=== PATIENT | female | born 1995 | race Caucasian/White ===

== ENCOUNTER 2024-02-12 03:10 | Emergency (ER) | payer MEDICAID ==
[~2024-02-12] VITALS: Ht 167.6 cm; Wt 63.5 kg
[2024-02-12] MEDS ORDERED: HYDR-500 PO (03:39)
[2024-02-12 03:53] VITALS: BP 131/75; TEMP 98; O2SAT 98
== END 2024-02-12 03:56 | disposition home or self-care (01) ==
LOC: ER 03:17
DX: F41.9 Anxiety disorder, unspecified (principal); Z76.0 Encounter for issue of repeat prescription